=== PATIENT | female | born 1980 | race Caucasian/White ===

== ENCOUNTER 2017-03-28 02:13 | Emergency (ER) | payer BC ==
[2017-03-28] MEDS ORDERED: PANTOPRAZOLE SODIUM 40 MG/10 ML PDS IV ONE (02:25)
[2017-03-28] MEDS ORDERED: SODIUM CHLORIDE 0.9% 1000ML 1,000 ML IV ONE (02:25)
[2017-03-28] MEDS ORDERED: SODIUM CHLORIDE 0.9% FLUSH 10 ML SOL IV PRN (02:25)
[2017-03-28] MEDS ORDERED: ONDANSETRON HCL 4 MG/2 ML SOL IV ONE (02:25)
[2017-03-28] MEDS ORDERED: ONDANSETRON HCL 4 MG/2 ML SOL ONE (02:28)
[2017-03-28] MEDS ORDERED: PANTOPRAZOLE SODIUM 40 MG/10 ML PDS ONE (02:28)
[2017-03-28 03:16] VITALS: BP 116/85; PULSE 100; RESP 18; TEMP 96.1; O2SAT 100
== END 2017-03-28 04:03 | disposition home or self-care (01) ==
LOC: ED 02:13
DX: K52.9 Noninfective gastroenteritis and colitis, unspecified (principal)
CPT/HCPCS: 99284; J2405